=== PATIENT | female | born 1980 | race Caucasian/White ===

== ENCOUNTER → 2017-07-03 | Outpatient (CLI) | payer BC ==
--- NOTE | 2017-07-03 11:58 | KCIC ---
THYROID ULTRASOUND History: Lump in throat. Comparison: None. Technique: Multiple grayscale and color Doppler images of the thyroid gland were obtained. Findings: Measurements length, AP, and transverse, respectively, unless otherwise stated. Right thyroid lobe measures 4.5 x 1.8 x 1.4 cm. Left thyroid lobe measures 4.2 x 1.7 x 1.5 cm. The thyroid gland is homogeneous. No discrete nodule is identified. Color Doppler interrogation demonstrates normal blood flow. The isthmus measures 3 mm. IMPRESSION: Unremarkable sonographic evaluation of the thyroid gland. Electronically signed by: Edu Campbell MD (07/03/2017 11:54 AM) [id number]
== END | disposition home or self-care (01) ==
LOC: KCIC US 10:22
PROVIDERS: ATTEND Nurse Practitioner Family
DX: R22.1 Localized swelling, mass and lump, neck (principal)
CPT/HCPCS: 76536

== ENCOUNTER → 2018-06-18 | Outpatient (CLI) | payer BC ==
--- NOTE | 2018-06-18 13:57 | KCIC ---
EXAMINATION: Magnetic resonance imaging (MRI) of the lumbar spine without contrast 06/18/2018 11:45 AM HISTORY: Neuropathy, tingling. Right leg pain since March 2018. TECHNIQUE: Multiplanar multi-weighted MRI of the lumbar spine was performed without intravenous contrast using the standard lumbar spine protocol. Contrast information: None administered. COMPARISON: None available. FINDINGS: The alignment of the lumbar spine is normal. Vertebral bodies demonstrate normal signal intensity on all sequences. There are no compression fractures. The conus medullaris terminates at the level of L1. The distal spinal cord signal intensity is normal. There is mild disc desiccation at L3-L4, L4-L5 and L5-S1. Annular fissure is identified at L5-S1. Limited views of the abdomen and pelvis show no soft tissue abnormality. The aorta is normal. L2-L3: There is a left foraminal disc protrusion. There is no facet arthropathy. There is no neuroforaminal stenosis. There is no spinal canal stenosis. L3-L4: There is a right far lateral annular fissure. There is no facet arthropathy. There is no neuroforaminal stenosis. There is no spinal canal stenosis. L4-L5: There is minimal disc bulge. There is moderate facet arthropathy. There is no neuroforaminal stenosis. There is no spinal canal stenosis. L5-S1: There is a left foraminal disc protrusion superimposed on mild circumferential disc bulge. There is moderate facet arthropathy. There is mild to moderate left neuroforaminal stenosis. There is no spinal canal stenosis. IMPRESSION: Mild degenerative changes of the lumbar spine as described in detail above. Electronically signed by: Alondra Franz MD (06/18/2018 1:54 PM) [id number]
== END | disposition home or self-care (01) ==
LOC: KCIC MRI 11:03
DX: M47.896 Other spondylosis, lumbar region (principal); M51.26 Other intervertebral disc displacement, lumbar region; M12.88 Other specific arthropathies, not elsewhere classified, other specified site; M48.07 Spinal stenosis, lumbosacral region
CPT/HCPCS: 72148